=== PATIENT | male | born 1985 | race Two or more races ===

== ENCOUNTER 2019-12-27 05:53 | Day surgery (SDC) | payer OTHER ==
[2019-12-27] VITALS (17 sets, daily range): BP systolic 110–161; BP diastolic 62–92
[~2019-12-27] VITALS: Ht 165.1 cm; Wt 121.6 kg
[2019-12-27] MEDS ORDERED: oxyCONTIN 20mg tab ORAL ONE (06:00)
[2019-12-27] MEDS ORDERED: celeBREX 200mg Cap **SURGERY PATIENTS ONLY ORAL ONE (06:00)
[2019-12-27] MEDS ORDERED: ceFAZolin 1gm IVPB IVPB ONE ×2 (06:00)
[2019-12-27] MEDS ORDERED: fentaNYL 100 mcg/2 mL IV ONE (06:52)
[2019-12-27] MEDS ORDERED: Lidocaine 1% MPF 10mg/ml 5ml ONE (06:52)
[2019-12-27] MEDS ORDERED: Midazolam 2mg/2ml Inj ONE (06:52)
[2019-12-27] MEDS ORDERED: Propofol 200mg/20ml IV ONE (06:52)
[2019-12-27] MEDS ORDERED: Ketorolac 30mg Inj ONE (06:53)
--- NOTE | 2019-12-27 06:58 | Pre-Procedure Note/Attestation ---
Pre-Procedure Note/Attestation Complete Prior to Procedure Planned Procedure: right Procedure Narrative: thigh excision of seroma Indications for Procedure Pre-Operative Diagnosis: right thigh seroma Attestation I attest that I discussed the nature of the procedure; its benefits; risks and complications; and alternatives (and the risks and benefits of such alternatives ), prior to the procedure, with the patient (or the patient's legal premium representative). I attest that, if there was a reasonable possibility of needing a blood transfusion, the patient (or the patient's legal premium representative) was given the [facility] standardized written summary, pursuant to the Abram Wilbert Blood Safety Act ([place] Health and Safety Code # 1645, as amended). I attest that I re-evaluated the patient just prior to the surgery and that there has been no change in the patient's H&P, except as documented below: Hector Escalona MD Dec 27, 2019 06:58
--- NOTE | 2019-12-27 06:59 | Operative Note - PDOC ---
Operative Note Operative Note Pre-op Diagnosis: right thigh seroma Procedure: see op report Post-op Diagnosis: same as pre-op plus Operative Findings: consistent w/pre-op dx studies Anesthesia: MAC Specimen: none Complications: none Condition: stable Estimated Blood Loss: none Implant(s) used?: No Hector Escalona MD Dec 27, 2019 06:59
[2019-12-27] MEDS ORDERED: LR 1000ml ONE (07:00)
[2019-12-27] MEDS ORDERED: Sterile Water Irrig 1000ml IRRIG ONE (07:00)
[2019-12-27] MEDS ORDERED: NS Irrig 1000ml ONE (07:00)
[2019-12-27] MEDS ORDERED: Bacitracin 50000 Units Vial ONE (07:07)
[2019-12-27] MEDS ORDERED: NeoSporin Gu Irrig 1ml Amp IRRIG ONE (07:07)
[2019-12-27] MEDS ORDERED: LR 1000ml 1,000 ML IVLG SCH (07:58)
--- NOTE | 2019-12-27 07:58 | Anethesia Preoperative Eval ---
Anesthesia Pre-op PMH/ROS General Date of Evaluation: Dec 27, 2019 Time of Evaluation: 07:08 Anesthesiologist: Regan ASA Score: ASA 3 Mallampati Score Class I : Soft palate, uvula, fauces, pillars visible Class II: Soft palate, uvula, fauces visible Class III: Soft palate, base of uvula visible Class IV: Only hard plate visible Mallampati Classification: Class III Surgeon: Pola Diagnosis: R thigh mass Surgical Procedure: Excision of the mass Anesthesia History: none Family History: no anesthesia problems Allergies: Coded Allergies: No Known Allergies (Unverified , 12/26/19) Medications: see eMAR Patient NPO?: Yes Past Medical History Cardiovascular: Denies: HTN, CAD, PR, valve dz, arrhythmia, other Pulmonary: Reports: KEIRY; Denies: asthma, COPD, other Gastrointestinal/Genitourinary: Reports: GERD Neurologic/Psychiatric: Denies: dementia, CVA, depression/anxiety, TIA, other Endocrine: 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 Exam Physician Exam Last Vital Signs Date Time Temp Pulse Resp B/P (MAP) Pulse Ox O2 Delivery O2 Flow Rate FiO2 12/27/19 06:38 Room Air 12/27/19 06:34 97.8 75 18 117/75 95 Constitutional: NAD Neurologic: CN 2-12 intact Cardiovascular: RRR, no M/R/G Respiratory: CTA Gastrointestinal: other - obessity Airway Exam Mallampati Score: Class III MO: full Neck: short ROM: full Teeth: intact Dentures: no upper, no lower Anesthesia Pre-op A/P Labs see chart Studies Pre-op Studies: EKG - NSR Risk Assessment & Plan Assessment: ASA 3 Plan: GA with LMA PONV prevention Status Change Before Surgery: No Pre-Antibiotics Drug: Ancef 1gr Given Within 1 Hr of Incision: Yes Time Given: 07:52 Blaise Spears MD Dec 27, 2019 07:58
[2019-12-27] MEDS ORDERED: Meperidine 25mg/0.5ml Inj (FOR RIGORS ONLY) IV PRN (08:00)
[2019-12-27] MEDS ORDERED: Ketorolac 30mg Inj IV PRN (08:00)
[2019-12-27] MEDS ORDERED: Metoclopramide 10mg/2ml Inj IVP PRN (08:00)
[2019-12-27] MEDS ORDERED: DiphenhydrAMINE 50mg/ml Inj IVP PRN (08:00)
[2019-12-27] MEDS ORDERED: Vancomycin 1gm vial IVPB ONE (08:01)
--- NOTE | 2019-12-27 08:39 | Immediate Post-Op Evaluation ---
Immediate Post-Op Evalulation Immediate Post-Op Evalulation Procedure: Excision of R thigh mass Date of Evaluation: Dec 27, 2019 Time of Evaluation: 08:38 IV Fluids: 1000 Blood Products: none Estimated Blood Loss: min Urinary Output: none Blood Pressure Systolic: 128 Blood Pressure Diastolic: 76 Pulse Rate: 70 Respiratory Rate: 20 O2 Sat by Pulse Oximetry: 99 Temperature (Fahrenheit): 97.6 Pain Score (1-10): 1 Nausea: No Vomiting: No Complications none Patient Status: reacts, patent Hydration Status: adequate Blaise Spears MD Dec 27, 2019 08:39
--- NOTE | 2019-12-27 13:21 | 48 Hour Post Anesthesia Eval ---
Post Anesthesia Evaluation Procedure: Excision of R thigh mass Date of Evaluation: Dec 27, 2019 Time of Evaluation: 10:25 Blood Pressure Systolic: 148 0: 76 Pulse Rate: 72 Respiratory Rate: 22 Temperature (Fahrenheit): 97.6 O2 Sat by Pulse Oximetry: 98 Airway: patent Nausea: No Vomiting: No Pain Intensity: 2 Hydration Status: adequate Cardiopulmonary Status: stable Mental Status/LOC: patient returned to baseline Follow-up Care/Observations: n/a Post-Anesthesia Complications: none Follow-up care needed: ready to discharge Blaise Spears MD Dec 27, 2019 13:21
--- NOTE | 2019-12-27 15:30 | Operative Note - Dictated ---
DATE OF OPERATION: 12/27/2019 PREOPERATIVE DIAGNOSIS: Right thigh seroma. POSTOPERATIVE DIAGNOSIS: Right thigh seroma. PROCEDURE: Right thigh excision of seroma. SURGEON: Hector Escalona M.D. ANESTHESIA: General. INDICATION FOR PROCEDURE: The patient is a pleasant gentleman who has had sudden trauma to the right thigh that continued the evidence of clinical seroma. He had MRI, which showed the seroma. After failed conservative treatment, elected to undergo excision of the seroma. Risks, limitations, expectations, complications related to the procedure were discussed in detail. All questions were addressed. DESCRIPTION OF PROCEDURE: After informed consent was obtained, the patient was brought to the operating room. The placed was placed under general anesthesia. The patient then carefully positioned in lateral decubitus position with the right hip up. Once that was done, the area of the seroma was identified. The skin was incised. Subcutaneous tissue was dissected down, care was taken to make sure that we had full thickness skin flaps. The seroma was then identified very clearly, superficial to the vastus lateralis. The pseudo capsule was then identified and slowly dissected off the subcutaneous fat as well as on the IT band. Once it was completed, the excised wound was copiously irrigated. A drain was placed along with vancomycin. The skin was closed with #1 Vicryl suture, 2-0 Vicryl suture, and 3-0 Monocryl sutures. The patient was awoken and taken to recovery room with stable vital signs. ESTIMATED BLOOD LOSS: None. COMPLICATIONS: None. SPECIMENS: None. Intraoperative findings showed a seroma that measured 6 x 6 cm in diameter. Hector Escalona M.D. DR: ROXANA JOB#: [id number] CC: [email or web address]
[2019-12-27] MEDS ORDERED: Hydromorphone 0.5mg/0.5ml inj SUBQ PRN (16:01)
[2019-12-27] MEDS ORDERED: D5 1/2NS 1,000 ML IV SCH (16:01)
[2019-12-27] MEDS ORDERED: Tylenol #3 tab (300mg/30mg) ORAL PRN (16:01)
[2019-12-27] MEDS ORDERED: HYDROcodone/Acetamin 5/325 tab ORAL PRN (16:01)
== END 2019-12-27 11:10 | disposition home or self-care (01) ==
LOC: SUR 05:53
DX: S70.11XA Contusion of right thigh, initial encounter (principal); G47.33 Obstructive sleep apnea (adult) (pediatric); E11.9 Type 2 diabetes mellitus without complications; K21.9 Gastro-esophageal reflux disease without esophagitis; E66.9 Obesity, unspecified; Z68.41 Body mass index [BMI] 40.0-44.9, adult; X58.XXXA Exposure to other specified factors, initial encounter
CPT/HCPCS: 11406; J0690; J1885; J2250; J2405; J2704; J3010; J3370; J7120; 94003; 94150; J2180